=== PATIENT | female | born 1965 | race Caucasian/White ===

== ENCOUNTER 2020-01-27 12:13 | Outpatient (CLI) | payer OTHER ==
[~2020-01-27 12:13] MED LIST: Magnevist 469MG/ML 20 ML VIAL ONE
--- NOTE | 2020-01-27 13:54 | MRI ---
MRI of thecervical spine: 01/27/2020 COMPARISON:None available HISTORY:Cervical dystonia, migraine headaches with neck pain TECHNIQUE: Multiplanar multisequence MR imaging of thecervical spine without contrast Findings:The sagittal STIR imaging demonstrates no focal area of osseous marrow edema. Cervical vertebral body height and alignment appears within normal limits. There is mild degenerative change at the atlantoaxial interspace. Benign hemangioma noted at the C1 l evel bilaterally. C2-3: No central canal or neural foraminal stenosis. C3-4: Minimal disc bulge. No significant central canal or neural foraminal stenosis. C4-5: Mild right neural foraminal stenosis. No significant central canal or left neural foraminal rachna nosis. C5-C6: There is significant bilateral uncovertebral osteophyte formation, right greater than left, wi th moderate bilateral neural foraminal stenosis, right greater than left. There is disc space narrowing with disc desiccation and a disc osteophyte complex effacing the ventral thecal sac and abu tting the ventral aspect of the cord with a mild/moderate degree of central canal stenosis. C6-7: There is disc space narrowing with disc desiccation and mild disc bulge. Partial effacement of ventral thecal sac with mild central canal stenosis. Mild left neural foraminal stenosis. No significant right neural foraminal stenosis. C7-T1: No significant central canal or neural foraminal stenosis. No focal area of abnormal signal intensity identified within the cervical cord. IMPRESSION:Multilevel cervical spine degenerative change, most prominent at the C5-6 level as detaile d above.
--- NOTE | 2020-01-27 14:16 | MRI ---
MRI BRAIN WITH AND WITHOUT IV CONTRAST: HISTORY: Migraine without aura COMPARISON: None CORRELATION: None FINDINGS: No restricted diffusion is seen. No evidence of infarct, hemorrhage, mass, midline shift or abnormal extra-axial fluid collections is noted. No abnormal postcontrast enhancement is seen. The ventricular size is appropriate and the basilar cisterns are patent. There are few tiny foci of T2 prolongation in the periventricular white matter, likely due to minimal chronic small vessel ischemic disease or migraine headaches. No tonsillar herniation is seen. There is a tiny amount of fluid in the left mastoid air cells.The visualized paranasal sinuses are we ll aerated. IMPRESSION: No evidence of acute intracranial process or mass.
== END 2020-01-27 12:14 | disposition home or self-care (01) ==
LOC: BICMRI 12:13
PROVIDERS: ATTEND Psychiatry & Neurology Neurology
DX: G43.019 Migraine without aura, intractable, without status migrainosus (principal); G24.3 Spasmodic torticollis; M47.812 Spondylosis without myelopathy or radiculopathy, cervical region
CPT/HCPCS: 70553; 72141; A9579

== ENCOUNTER 2020-02-01 08:16 | Outpatient (CLI) | payer OTHER ==
--- NOTE | 2020-02-01 09:32 | MMO ---
Bilateral MAMMO Bilat Screen [facility]. CLINICAL HISTORY: Patient is 54 years old and is seen for screening. The patient has no family history of breast cancer. The patient has no personal history of cancer. The patient has a history of bilateral Implants at age 35. VIEWS: The views performed were: bilateral craniocaudal with tomosynthesis and bilateral mediolateral oblique with tomosynthesis. FILMS COMPARED: The present examination has been compared to prior imaging studies performed at [facility] on 09/28/2006, 01/21/2016, 03/03/2017 and 09/14/2018. This study has been interpreted with the assistance of computer-aided detection. MAMMOGRAM FINDINGS: There are scattered fibroglandular densities. Finding 1: There are stable benign appearing calcifications seen in both breasts. Finding 2: Normal implants are present. There are no suspicious masses, suspicious calcifications, or new areas of architectural distortion. IMPRESSION: THERE IS NO MAMMOGRAPHIC EVIDENCE OF MALIGNANCY. A ROUTINE FOLLOW-UP MAMMOGRAM IN 1 YEAR IS RECOMMENDED. THE RESULTS OF THIS EXAM WERE SENT TO THE PATIENT. ACR BI-RADS Category 2 - Benign finding MAMMOGRAPHY NOTE: 1. A negative mammogram report should not delay a biopsy if a dominant of clinically suspicious mass is present. 2. Approximately 10% to 15% of breast cancers are not detected by mammography. 3. Adenosis and dense breasts may obscure an underlying neoplasm. Reported by: JAMEY WOODS MD Electonically Signed: [id number]
== END 2020-02-01 08:17 | disposition home or self-care (01) ==
LOC: BICMAMMO 08:16
PROVIDERS: ATTEND Family Medicine
DX: Z12.31 Encounter for screening mammogram for malignant neoplasm of breast (principal); Z98.82 Breast implant status
CPT/HCPCS: 77063; 77067

== ENCOUNTER 2021-12-08 01:01 | Emergency (ER) | payer BC ==
[2021-12-08] MEDS ORDERED: Ketorolac Tromethamine 30 MG/ML VIAL ONE (01:08)
[2021-12-08] MEDS ORDERED: Lorazepam 2 MG/ML VIAL ONE (01:11)
[2021-12-08 01:21] LABS: #Eosinphils 0.1 thou/uL (0.0-0.7); #Monocytes 0.4 thou/uL (0.11-0.59); %Basophils 0.3 % (0.0-1.0); %Eosinophils 2.5 % (0.0-10.0); %Lymphocytes 36.1 % (21.0-51.0); %Monocytes 6.8 % (0.0-10.0); %Neutrophils 54.3 % (42.0-75.0); Hemoglobin 14.6 g/dL (12.0-16.0); Mean Corpuscular HGB CONC 33.4 g/dL (32.0-36.0); Mean Corpuscular Volume 95.9 fl (78.0-98.0); Mean Platelet Volume 8.5 fL (7.4-10.4); Platelet Count 249 thou/uL (130-400); RBC Distribution Width 10.9 % (11.5-14.5); Red Blood Cell (RBC) Count 4.55 mill/uL (4.20-5.40); White Blood Cell (WBC) Count 5.4 thou/uL (4.8-10.8)
[2021-12-08 01:38] LABS: ALT (SGPT) 18 U/L (8-55); AST (SGOT) 19 U/L (5-34); Acetaminophen Less than 10.0 mcg/mL (10.0-30.0); Albumin 4.5 g/dL (3.5-5.0); Alcohol 281 mg/dL (Less than 10); Alkaline Phosphatase 58 U/L (40-110); Anion Gap 14 mmol/L (10-20); BUN (Urea Nitrogen) 14 mg/dL (9.8-20.1); Bilirubin, Total 0.2 mg/dL (0.2-1.2); Calc. Creatinine Clearance 0 mL/min (70-130); Calcium 9.1 mg/dL (7.8-10.44); Carbon Dioxide 25 mmol/L (22-29); Chloride 104 mmol/L (98-107); Estimated GFR 88; Globulin 2.2 g/dL (2.4-3.5); Glucose 102 mg/dL (70-105); Lipase 69 U/L (8-78); Magnesium 1.9 mg/dL (1.6-2.6); Potassium 3.6 mmol/L (3.5-5.1); Protein, Total 6.7 g/dL (6.0-8.3); Salicylate Less than 8.0 mg/dL (15.0-30.0); Sodium 139 mmol/L (136-145)
[2021-12-08] MEDS ORDERED: Pantoprazole 40 MG VIAL ONE (02:34)
[2021-12-08] MEDS ORDERED: Ondansetron PF 4 MG/2 ML Vial ONE ×2 (02:34)
== END 2021-12-08 03:44 | disposition home or self-care (01) ==
LOC: ERS 01:01
DX: F10.129 Alcohol abuse with intoxication, unspecified (principal); I10 Essential (primary) hypertension; E03.9 Hypothyroidism, unspecified; Z79.899 Other long term (current) drug therapy
CPT/HCPCS: 36416; 70450; 80053; 80307; 83690; 83735; 85025; 96361; 96374; 96375; C9113; J1885; J2060; J2405

== ENCOUNTER 2022-01-09 15:00 | Outpatient (CLI) | payer BC | END 2022-01-09 15:01 | disposition home or self-care (01) | LOC: BICMAMMO 15:00 | PROVIDERS: ATTEND Family Medicine | DX: Z12.31 Encounter for screening mammogram for malignant neoplasm of breast (principal); Z98.82 Breast implant status | CPT/HCPCS: 77063; 77067 ==